=== PATIENT | female | born 1950 | race Caucasian/White ===

== ENCOUNTER 2018-09-23 10:38 | Emergency (ER) | payer MEDICARE ==
[~2018-09-23] VITALS: Ht 157.5 cm; Wt 70.0 kg
[~2018-09-23 10:38] MED LIST: ALLEGRA30 MG OR; ALLEGRA60 M1 PO; AUGMENTIN500 MG OR; AUGMENTIN875TAB OR; AZELASTINE HCL0.1 %; CALCIUM/D250 MG PO; CRESTOR10 MG PO; FEXOFENADINE180 MG OR; FUROSEMIDE20 MG PO; HYDROCHLOROTH12.5 M1 OR; HYDROCHLOROTH12.5 MG OR; LASIX20 MG OR; LIPITOR20 MG PO; Levaquin OR; MEDDOSEPAK OR; NAPROXEN500 MG PO; NASONEX50 MCG/AC; OMEPRAZOLE20 MG PO; SIMVASTATIN20 MG PO; ULTRAM50 M1 OR; XYZAL5 MG PO
[2018-09-23] MEDS ORDERED: AMLODIPINE BES2.5 MG PO (11:26)
[2018-09-23] MEDS ORDERED: RESTASIS0.05 % OU (11:26)
[2018-09-23 11:27] LABS: HEMATOCRIT 41.4 % (37.0-47.0); HEMOGLOBIN 13.7 g/dl (12.0-16.0); IMMATURE GRANULOCYTES 0.2 % (0.0-5.0); MEAN CELL VOLUME 91.6 fL CALC (80.0-100.0); MEAN CORPUSCULAR HGB 30.3 pG CALC (26.0-32.0); MEAN CORPUSCULAR HGB CONC 33.1 g/L CALC (32.0-36.0); NEUT# 6.43 thou/uL (2.00-7.15); RED BLOOD COUNT 4.52 mill/uL (4.20-5.60); RED CELL DISTRI WIDTH 13.7 % (11.5-15.5)
[2018-09-23] MEDS ORDERED: TESSALON PER100 MG PO (11:55)
[2018-09-23] MEDS ORDERED: PROVENTIL HFA IN (11:55)
[2018-09-23] MEDS ORDERED: DOXYCYCL HYC100 MG PO (11:55)
[2018-09-23] MEDS ORDERED: MEDDOSEPAK PO (11:55)
[2018-09-23 12:02] VITALS: BP 151/82
== END 2018-09-23 12:02 | disposition home or self-care (01) ==
LOC: ED 10:38
PROVIDERS: Emergency Medicine
DX: R05 Cough (principal); R09.81 Nasal congestion; H92.09 Otalgia, unspecified ear

== ENCOUNTER 2020-02-01 | Emergency (ER) | payer MEDICARE ==
[~2020-02-01] MED LIST changes: +AMLODIPINE BES2.5 MG PO; +DOXYCYCL HYC100 MG PO; +MEDDOSEPAK PO; +PROVENTIL HFA IN; +RESTASIS0.05 % OU; +TESSALON PER100 MG PO
[2020-02-01] MEDS ORDERED: DYMISTA1 SPR (23:11)
[2020-02-01] MEDS ORDERED: ULTRAM50 M1 PO (23:12)
[2020-02-01 23:51] LABS: HEMATOCRIT 38.7 % (37.0-47.0); HEMOGLOBIN 12.9 g/dl (12.0-16.0); IMMATURE GRANULOCYTES 0.4 % (0.0-5.0); MEAN CELL VOLUME 89.2 fL CALC (80.0-100.0); MEAN CORPUSCULAR HGB 29.7 pG CALC (26.0-32.0); MEAN CORPUSCULAR HGB CONC 33.3 g/dL CAL (32.0-36.0); NEUT# 7.33 thou/uL (2.00-7.15); RED BLOOD COUNT 4.34 mill/uL (4.20-5.60); RED CELL DISTRI WIDTH 13.6 % (11.5-15.5)
[2020-02-01 23:57] LABS: ALBUMIN 4.1 g/dL (3.2-5.0); ALKALINE PHOSPHATASE 72 u/l (38-126); AMYLASE 78 u/l (30-110); ANION GAP 12 (6-22 (CALC)); BILIRUBIN, TOTAL 0.6 mg/dL (0.0-1.4); BUN 11 mg/dL (8-23); BUN/CREATININE RATIO 16 (12-20 (CALC)); CARBON DIOXIDE 27 mmol/l (22-30); CHLORIDE 98 mmol/l (95-108); CREATININE 0.7 mg/dL (0.5-1.0); GFR > 60 ML/MIN (>=60 (CALC)); GFR FOR AFR.AMER. > 60 ML/MIN (>=60 (CALC)); LIPASE 68 u/l (23-300); POTASSIUM 3.9 mmol/l (3.5-5.1); SGOT/AST 64 u/l (9-36); TOTAL PROTEIN 7.1 g/dL (6.3-8.2)
[2020-02-01 23:58] LABS: SODIUM 133 mmol/l (137-146)
[2020-02-02 02:28] LABS: URINE BILIRUBIN - DIPSTICK NEGATIVE (NEGATIVE); URINE BLOOD DIPSTICK NEGATIVE (NEGATIVE); URINE COLOR YELLOW; URINE GLUCOSE - DIPSTICK NEGATIVE (NEGATIVE); URINE KETONE TRACE mg/dL (NEGATIVE); URINE LEUK ESTERASE NEGATIVE (NEGATIVE); URINE NITRITE - DIPSTICK NEGATIVE (Negative); URINE PROTEIN - DIPSTICK NEGATIVE (NEG-TRACE); URINE SPECIFIC GRAVITY <=1.005; URINE UROBILINOGEN - DIPSTICK 0.2 E.U./dL (0.2)
[2020-02-02] MEDS ORDERED: AMOX/K CLAV875 M1 PO (02:29)
--- NOTE | 2020-02-04 10:59 | NUR ---
Notified patient of Covid results (Negative). Advised patient to follow up with PCP or return to ED with urgent needs. Advised patient to continue practicing Covid prevention. Patient verbalized understanding.
== END 2020-02-02 02:47 | disposition home or self-care (01) ==
PROVIDERS: Family Medicine
DX: R50.9 Fever, unspecified (principal); R10.32 Left lower quadrant pain; C91.10 Chronic lymphocytic leukemia of B-cell type not having achieved remission; I10 Essential (primary) hypertension; Z79.899 Other long term (current) drug therapy; Z20.828 Contact with and (suspected) exposure to other viral communicable diseases
CPT/HCPCS: Q9967

== ENCOUNTER 2023-06-11 10:07 | Emergency (ER) | payer MEDICARE ==
[~2023-06-11] VITALS: Ht 157.5 cm; Wt 65.0 kg
[~2023-06-11 10:07] MED LIST changes: +AMOX/K CLAV875 M1 PO; +DYMISTA1 SPR; +ULTRAM50 M1 PO
[2023-06-11 10:20] VITALS: BP 153/82
[2023-06-11 10:39] VITALS: BP 126/60
[2023-06-11 10:46] VITALS: BP 129/58
[2023-06-11] MEDS ORDERED: DULCOLAX10 MG RE (11:35)
[2023-06-11 11:40] VITALS: BP 135/71
[2023-06-11 11:46] VITALS: BP 135/71
== END 2023-06-11 11:52 | disposition home or self-care (01) ==
LOC: ED 10:07
DX: K59.00 Constipation, unspecified (principal); I10 Essential (primary) hypertension; C91.10 Chronic lymphocytic leukemia of B-cell type not having achieved remission

== ENCOUNTER 2024-04-10 05:41 | Emergency (ER) | payer MEDICARE ==
[~2024-04-10] VITALS: Ht 157.5 cm; Wt 63.0 kg
[~2024-04-10 05:41] MED LIST changes: +ALEVE PM 220-251 TAB PO; +AMITRIPTYLINE H10 MG PO; +DULCOLAX10 MG RE; +TYLENOL PM PO; +[UNRECOGNIZED DRUG - OTHER]; +[UNRECOGNIZED DRUG - OTHER]
[2024-04-10 06:00] VITALS: BP 144/81
[2024-04-10] MEDS ORDERED: SODIUM CHLORIDE 0.9% 1,000 ML IV STA (06:13)
[2024-04-10] MEDS ORDERED: KETOROLAC TROMETHAMINE 30 MG/ML SDV IV ONE (06:15)
[2024-04-10] MEDS ORDERED: ACETAMINOPHEN 500 MG TAB PO ONE (06:15)
[2024-04-10 06:36] LABS: URINE BILIRUBIN - DIPSTICK Negative (NEGATIVE); URINE BLOOD DIPSTICK Negative (NEGATIVE); URINE COLOR Yellow; URINE GLUCOSE - DIPSTICK Negative (NEGATIVE); URINE KETONE Negative (NEGATIVE); URINE LEUK ESTERASE Negative (NEGATIVE); URINE NITRITE - DIPSTICK Negative (Negative); URINE PH 5.5 (4.5-8.0); URINE PROTEIN - DIPSTICK Negative (NEG-TRACE); URINE SPECIFIC GRAVITY 1.025; URINE UROBILINOGEN - DIPSTICK 0.2 E.U./dL (0.2)
[2024-04-10 06:37] LABS: BASO% 0.6 % (0-3); EOS% 4.5 % (0-8); HEMATOCRIT 43.1 % (37.0-47.0); HEMOGLOBIN 14.2 g/dl (12.0-16.0); IMMATURE GRANULOCYTES 0.8 % (0.0-5.0); LYMPH% 31.1 % (15-41); MEAN CORPUSCULAR HGB 29.6 pG CALC (26.0-32.0); MEAN CORPUSCULAR HGB CONC 32.9 g/dL CAL (32.0-36.0); MONO% 9.6 % (2-13); NEUT# 4.13 thou/uL (2.00-7.15); NEUT% 53.4 % (42-76); RED BLOOD COUNT 4.79 mill/uL (4.20-5.60); RED CELL DISTRI WIDTH 14.2 % (11.5-15.5)
[2024-04-10 06:47] LABS: BILIRUBIN, TOTAL 0.5 mg/dL (0.02-1.3); CREATININE 0.8 mg/dL (0.5-1.0); POTASSIUM 4.2 mmol/l (3.5-5.1)
[2024-04-10 07:00] VITALS: BP 138/94
[2024-04-10 07:05] VITALS: BP 153/80
[2024-04-10 07:20] VITALS: BP 153/80
== END 2024-04-10 07:23 | disposition home or self-care (01) ==
LOC: ED 05:41
PROVIDERS: Family Medicine
DX: R52 Pain, unspecified (principal); I10 Essential (primary) hypertension; C91.10 Chronic lymphocytic leukemia of B-cell type not having achieved remission